=== PATIENT | female | born 1950 | race Caucasian/White ===

== ENCOUNTER 2018-03-05 20:13 | Observation (INO) | payer MEDICARE, BC, SELFPAY ==
[2018-03-05] VITALS (12 sets, daily range): BP systolic 139–189; BP diastolic 70–120; PULSE 81–100; RESP 14–22; TEMP 36.7–36.8; O2SAT 95–99
--- NOTE | 2018-03-05 20:21 | DI.CT_ITS ---
SYMPTOMS/DIAGNOSIS: SHARP CHEST PAIN WITH SHORTNESS OF BREATH PE CHEST CTA: CT angiography was performed with multi slice acquisition and multi planar and 3D reconstruction. CT scan of the chest was performed according to the pulmonary embolus protocol. There is no evidence of a pulmonary embolus. The thoracic aorta is of normal caliber. No aneurysm or dissection is seen. The heart size is within normal limits. No significant pericardial effusion is seen. No evidence of right ventricular dysfunction is present. There is no significant mediastinal or hilar adenopathy. No pleural effusion or pneumothorax is identified. There are atelectatic changes seen in the lung bases right greater than left. There are several small peripheral nodules seen in the upper lobes, up to 0.3 cm in size. The upper abdominal images show findings of a prior cholecystectomy. The bones are intact. IMPRESSION: 1. No findings to suggest an acute pulmonary embolus or thoracic aortic dissection or aneurysm. 2. Multiple small peripheral pulmonary nodules. Follow up according to the patient's risk factor including smoking history. For high risk patients CT at 12 months is recommended.
--- NOTE | 2018-03-05 20:24 | W.ED.GENAD ---
Discharge Plan Disposition Patient Disposition: [facility] Condition: Good Discharge Details Chief Complaint: Chest Pain Clinical Impression: Chest pain Primary Care Provider: Lynne Richards ED Provider: Seth Bacon Home Meds and New Rx's Prescriptions: No Action atorvastatin 20 MG tablet 10 mg PO DAILY RF: 0 trazodone 50 MG tablet 25 mg PO HS RF: 0 aspirin [Aspir-81] 81 MG tablet,delayed release (DR/EC) 81 mg PO HS RF: 0 oxybutynin chloride 5 MG tablet 5 mg PO HS RF: 0 albuterol sulfate [Ventolin HFA] 8 GM HFA aerosol inhaler 1 - 2 puff Inhalation Q4H PRN RF: 0 esomeprazole magnesium [Nexium] 40 mg Capsule,Delayed Release(Dr/Ec) 40 mg PO DAILY RF: 0 lisinopril 10 mg Tablet 10 mg PO DAILY RF: 0 Medical Decision Making This is a 67-year-old female who presents today for evaluation of chest pain. It began at 11 AM, and is gradually worsened, climaxing about an hour ago with a sharp stabbing central pain that went through her chest into her back, and radiated down her left arm. There does not seem to be an exertional component, however she did have some associated shortness of breath and mild chest pressure when she was shoveling snow during the last snowstorm. She unfortunately has a very strong family history of cardiac disease, from her mother's side, both of which had heart attacks at the age of 70. The patient does have cardiac risk factors additionally of hypertension and high cholesterol. I am certainly concerned for potential cardiac etiology as the cause of her symptoms, additionally with her stabbing pain through her chest, her tachycardia and shortness of breath I feel that CT angiography is reasonable to rule out dissection or PE. We will give the patient nitro, aspirin, reassess. She will most likely require observation for serial troponins and echocardiogram in the morning. 20:19 EKG rate 93, ID 160, QTc 428, QRS 90, sinus rhythm, no significant ST elevations or depressions, no Q waves, no inverted T waves. Normal EKG Patient's laboratory workup is returned, troponin is negative, EKG shows no evidence of STEMI. TSH and lipase are also normal. CT angiogram shows no evidence of acute process, no evidence of dissection or PE. There are a few small peripheral nodules in her lungs. These will require outpatient follow-up. Patient's pain is still at a 0 at this time. She has responded well to the initial nitroglycerin. She is not on a nitro drip. Because of her symptomatology, and risk factors I feel that she would benefit from inpatient admission serial troponins and stress test. I discussed the case with Dr. Nieto, he agrees to the assessment and plan. Patient [facility] be [facility] with telemetry. I have extensively reviewed the treatment plan with the patient. I have addressed all patient concerns at this time. I have also discussed the plan with the admitting physician and they agree with the current assessment and plan and have agreed to assume responsibility for the patient. All parties demonstrate verbal understanding and agreement with our assessment and plan at this time. IMPRESSION: 1. No CTA evidence of pulmonary embolism. 2. Multiple small peripheral nodules in the upper lobes ranging in size from 0.2 to 0.3 cm. For low risk patients, no routine follow-up is needed. For high risk patients, optional CT at 12 months is recommended. Dictated and Authenticated by: Jorge Pino MD. [facility] General Date/Time Provider Initiated Documentation: 03/05/18 20:21. HPI Narrative: This is a 67-year-old female with a past medical history of alpha-1 antitrypsin deficiency, hypertension, high cholesterol, and a very strong history of maternal cardiac disease at the age of 69, a past surgical history of cholecystectomy who presents today for evaluation of chest pain. Patient states that she had chest pain which she describes as sharp and achy and pressure-like started at 11 AM, throughout the day it worsened, and at one point roughly an hour ago she had a sharp stabbing pain that went straight through her chest into her back. As well as radiation down the left arm. There seems to be no aggravating or relieving factors, she states that currently exertion does not worsen her symptoms, and rest does not relieve them. Symptoms seem to be constant on their own. She does note though that the last big snowstorm while shoveling snow she remembers feeling particularly short of breath, may have had some chest pressure, both of which are atypical for her when she is shoveling snow. The patient denies any previous cardiac workup, she denies any previous cardiac issues. She does take her home medications regularly. She did take 1 baby aspirin prior to arrival. Patient also did drink some soda and took some Tums but this did not her improve her symptoms. Patient denies any other aggravating or relieving factors, she denies any other associated complaints. She has no other complaints at this time. Related Data Home Medications Medication Instructions Recorded Confirmed aspirin [Aspir 81] 81 mg PO HS 09/27/12 03/05/18 atorvastatin 10 mg PO DAILY tab-cap 09/27/12 03/05/18 oxybutynin chloride 5 mg PO HS 09/27/12 03/05/18 trazodone 25 mg PO HS tab-cap 09/27/12 03/05/18 albuterol sulfate [Ventolin Hfa] 1 - 2 puff INHALATION Q4H PRN 12/04/13 03/05/18 inhaler esomeprazole magnesium [Nexium] 40 mg PO DAILY 03/05/18 03/05/18 lisinopril 10 mg PO DAILY 03/05/18 03/05/18 Allergies Allergy/AdvReac Type Severity Reaction Status Date / Time Penicillins Allergy Severe hives and Unverified 12/04/13 09:03 swelling. General Stated Complaint: Chest Pain SOCO: 2 Review of Systems Review of Systems All systems reviewed & are unremarkable except as noted in HPI and below PFSH Social History Smoking/Tobacco Use Status: Never Social History Smoking/Tobacco Use Status: Never Exam Narrative Exam Narrative: 1.Const: Well-nourished, Well-developed, appearing stated age 2.Eyes: PERRL, no conjunctival injection, and symmetrical lids. 3.ENT: Atraumatic external nose and ears. Moist MM. Neck: Symmetric, trachea midline, No thyromegaly. 4.CVS: +S1/S2, No murmurs or gallops. Peripheral pulses 2+ and equal in all extremities. Brisk capillary refill in all extremities. Radial pulses +2 bilaterally and equal and symmetric. 5.RESP: Unlabored respiratory effort. Clear to auscultation bilaterally. No wheezes rales or rhonchi, no reproducible chest wall tenderness. 6.GI: Soft, Nontender/Nondistended, No hepatosplenomegaly. No guarding or rebound. No pain at McBurney's point, negative Carmona sign 7.MSK: Normocephalic/Atraumatic, Extremities w/o deformity or ttp No cyanosis or clubbing, Normal movement of all extremities 8.Skin: Warm, Dry. No rashes or lesions. 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 Sensation grossly intact, no focal neurologic deficits. 10.Psych: (AAO) x3. Appropriate mood and affect Course Vital Signs Temperature 36.8 C 03/05/18 20:16 Pulse 100 H 03/05/18 20:16 Respiratory Rate 16 03/05/18 20:16 Blood Pressure 189/120 H 03/05/18 20:16 Pulse Oximetry 99 03/05/18 20:16 Temperature 36.8 C 03/05/18 20:16 Temperature Source Temporal Artery Scan 03/05/18 20:16 Pulse 100 H 03/05/18 20:16 Respiratory Rate 16 03/05/18 20:16 Blood Pressure 189/120 H 03/05/18 20:16 Pulse Oximetry 99 03/05/18 20:16 Oxygen Delivery Method Room Air 03/05/18 20:16 Oxygen Flow Rate 0 03/05/18 20:16 Pain Level 2 03/05/18 20:16 Comment 03/05/18 20:16
[2018-03-05] MEDS: Aspirin 81 MG CHEW 324 MG CH (20:29)
--- NOTE | 2018-03-05 20:30 | ED.GENADUL_ITS ---
Discharge Plan Disposition Patient Disposition: [facility] INPATIENT Condition: Good Discharge Details Chief Complaint: Chest Pain Clinical Impression: Chest pain Primary Care Provider: Lynne Richards ED Provider: Seth Bacon Home Meds and New Rx's Prescriptions: No Action atorvastatin 20 MG tablet 10 mg PO DAILY RF: 0 trazodone 50 MG tablet 25 mg PO HS RF: 0 aspirin [Aspir-81] 81 MG tablet,delayed release (DR/EC) 81 mg PO HS RF: 0 oxybutynin chloride 5 MG tablet 5 mg PO HS RF: 0 albuterol sulfate [Ventolin HFA] 8 GM HFA aerosol inhaler 1 - 2 puff Inhalation Q4H PRN RF: 0 esomeprazole magnesium [Nexium] 40 mg Capsule,Delayed Release(Dr/Ec) 40 mg PO DAILY RF: 0 lisinopril 10 mg Tablet 10 mg PO DAILY RF: 0 Medical Decision Making This is a 67-year-old female who presents today for evaluation of chest pain. It began at 11 AM, and is gradually worsened, climaxing about an hour ago with a sharp stabbing central pain that went through her chest into her back, and radiated down her left arm. There does not seem to be an exertional component, however she did have some associated shortness of breath and mild chest pressure when she was shoveling snow during the last snowstorm. She unfortunately has a very strong family history of cardiac disease, from her mother's side, both of which had heart attacks at the age of 70. The patient does have cardiac risk factors additionally of hypertension and high cholesterol. I am certainly concerned for potential cardiac etiology as the cause of her symptoms, additionally with her stabbing pain through her chest, her tachycardia and shortness of breath I feel that CT angiography is reasonable to rule out dissection or PE. We will give the patient nitro, aspirin, reassess. She will most likely require observation for serial troponins and echocardiogram in the morning. 20:19 EKG rate 93, ID 160, QTc 428, QRS 90, sinus rhythm, no significant ST elevations or depressions, no Q waves, no inverted T waves. Normal EKG Patient's laboratory workup is returned, troponin is negative, EKG shows no evidence of STEMI. TSH and lipase are also normal. CT angiogram shows no evidence of acute process, no evidence of dissection or PE. There are a few small peripheral nodules in her lungs. These will require outpatient follow- up. Patient's pain is still at a 0 at this time. She has responded well to the initial nitroglycerin. She is not on a nitro drip. Because of her symptomatology, and risk factors I feel that she would benefit from inpatient admission serial troponins and stress test. I discussed the case with Dr. Nieto, he agrees to the assessment and plan. Patient will be admitted to [facility] with telemetry. I have extensively reviewed the treatment plan with the patient. I have addressed all patient concerns at this time. I have also discussed the plan with the admitting physician and they agree with the current assessment and plan and have agreed to assume responsibility for the patient. All parties demonstrate verbal understanding and agreement with our assessment and plan at this time. IMPRESSION: 1. No CTA evidence of pulmonary embolism. 2. Multiple small peripheral nodules in the upper lobes ranging in size from 0.2 to 0.3 cm. For low risk patients, no routine follow-up is needed. For high risk patients, optional CT at 12 months is recommended. Dictated and Authenticated by: Jorge Pino MD. [facility] General Date/Time Provider Initiated Documentation: 03/05/18 20:21 . HPI Narrative: This is a 67-year-old female with a past medical history of alpha-1 antitrypsin deficiency, hypertension, high cholesterol, and a very strong history of maternal cardiac disease at the age of 69, a past surgical history of cholecystectomy who presents today for evaluation of chest pain. Patient states that she had chest pain which she describes as sharp and achy and pressure-like started at 11 AM, throughout the day it worsened, and at one point roughly an hour ago she had a sharp stabbing pain that went straight through her chest into her back. As well as radiation down the left arm. There seems to be no aggravating or relieving factors, she states that currently exertion does not worsen her symptoms, and rest does not relieve them. Symptoms seem to be constant on their own. She does note though that the last big snowstorm while shoveling snow she remembers feeling particularly short of breath, may have had some chest pressure, both of which are atypical for her when she is shoveling snow. The patient denies any previous cardiac workup, she denies any previous cardiac issues. She does take her home medications regularly. She did take 1 baby aspirin prior to arrival. Patient also did drink some soda and took some Tums but this did not her improve her symptoms. Patient denies any other aggravating or relieving factors, she denies any other associated complaints. She has no other complaints at this time. Related Data Home Medications Medication Instructions Recorded Confirmed aspirin [Aspir 81] 81 mg PO HS 09/27/12 03/05/18 atorvastatin 10 mg PO DAILY tab-cap 09/27/12 03/05/18 oxybutynin chloride 5 mg PO HS 09/27/12 03/05/18 trazodone 25 mg PO HS tab-cap 09/27/12 03/05/18 albuterol sulfate [Ventolin Hfa] 1 - 2 puff INHALATION Q4H PRN 12/04/13 03/05/18 inhaler esomeprazole magnesium [Nexium] 40 mg PO DAILY 03/05/18 03/05/18 lisinopril 10 mg PO DAILY 03/05/18 03/05/18 Allergies Allergy/AdvReac Type Severity Reaction Status Date / Time Penicillins Allergy Severe hives and Unverified 12/04/13 09:03 swelling. General Stated Complaint: Chest Pain SOCO: 2 Review of Systems Review of Systems All systems reviewed & are unremarkable except as noted in HPI and below PFSH Social History Smoking/Tobacco Use Status: Never Social History Smoking/Tobacco Use Status: Never Exam Narrative Exam Narrative: 1.Const: Well-nourished, Well-developed, appearing stated age 2.Eyes: PERRL, no conjunctival injection, and symmetrical lids. 3.ENT: Atraumatic external nose and ears. Moist MM. Neck: Symmetric, trachea midline, No thyromegaly. 4.CVS: +S1/S2, No murmurs or gallops. Peripheral pulses 2+ and equal in all extremities. Brisk capillary refill in all extremities. Radial pulses +2 bilaterally and equal and symmetric. 5.RESP: Unlabored respiratory effort. Clear to auscultation bilaterally. No wheezes rales or rhonchi, no reproducible chest wall tenderness. 6.GI: Soft, Nontender/Nondistended, No hepatosplenomegaly. No guarding or rebound. No pain at McBurney's point, negative Carmona sign 7.MSK: Normocephalic/Atraumatic, Extremities w/o deformity or ttp No cyanosis or clubbing, Normal movement of all extremities 8.Skin: Warm, Dry. No rashes or lesions. 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 Sensation grossly intact, no focal neurologic deficits. 10.Psych: (AAO) x3. Appropriate mood and affect Course Vital Signs Temperature 36.8 C 03/05/18 20:16 Pulse 100 H 03/05/18 20:16 Respiratory Rate 16 03/05/18 20:16 Blood Pressure 189/120 H 03/05/18 20:16 Pulse Oximetry 99 03/05/18 20:16 Temperature 36.8 C 03/05/18 20:16 Temperature Source Temporal Artery Scan 03/05/18 20:16 Pulse 100 H 03/05/18 20:16 Respiratory Rate 16 03/05/18 20:16 Blood Pressure 189/120 H 03/05/18 20:16 Pulse Oximetry 99 03/05/18 20:16 Oxygen Delivery Method Room Air 03/05/18 20:16 Oxygen Flow Rate 0 03/05/18 20:16 Pain Level 2 03/05/18 20:16 Comment 03/05/18 20:16
[2018-03-05] MEDS: Normal Saline 1,000 ML 1000 ML IV (20:32)
[2018-03-05 20:35] LABS: Abs Immature Grans 0.02 k/cumm (0.0-0.09); Absolute Basophil Count 0.03 k/cumm (0.0-0.2); Absolute Eosinophil Count 0.15 k/cumm (0.0-0.7); Absolute Lymphocyte Count 2.21 k/cumm (1.2-3.4); Absolute Monocyte Count 0.71 k/cumm (0.11-0.7); Absolute Neutrophil Count 6.81 k/cumm (1.2-6.7); Basophils % 0.3; Eosinophils % 1.5; HCT 41.8 % (36.0-46.0); Immature Grans % 0.2; Lymphocytes % 22.3; Mean Corpuscular Volume 91.3 fL (80-95); Mean Platelet Volume 9.8 fL (8.0-11.0); Monocytes % 7.2; Neutrophils % 68.5; Platelet Count 172 x1000/uL (130-400); RBC 4.58 m/cumm (4.00-5.20); RBC Distribution Width 12.2 % (11.7-14.6); White Blood Cell Count 9.93 k/cumm (4.4-10.8)
--- NOTE | 2018-03-05 20:37 | NUR.NOTE ---
0/10 pressure after 2nd SL NTG.
[2018-03-05 20:49] LABS: INR 1.1 (1.0-3.5); Mean Corp. HGB Concentration 35.4 g/dL (32.0-36.0); Mean Corpuscular Hemoglobin 32.3 pg (27.0-33.0); PTT Activated 23.9 sec (21.0-31.4); Prothrombin Time 11.1 sec (9.3-10.8)
[2018-03-05 20:51] LABS: ALT 33 U/L (12-78); AST 31 U/L (15-37); Albumin 4.1 g/dL (3.4-5.0); Alkaline Phosphatase 107 U/L (46-116); Anion Gap 10.6 mmol/L (3-11); BUN 11 mg/dL (7-18); Bilirubin, Total 0.5 mg/dL (0.2-1.0); CO2 28.4 mmol/L (21.0-32.0); CREATININE 0.79 mg/dL (0.55-1.02); Calcium 8.9 mg/dL (8.5-10.1); Chloride 101 mmol/L (98-107); Glucose 144 mg/dL (70-100); HGB 14.8 g/dL (12.0-15.5); Potassium 3.2 mmol/L (3.5-5.1); Sodium 140 mmol/L (136-145); Total Protein 7.4 g/dL (6.4-8.2)
[2018-03-05 20:58] LABS: Lipase 138 U/L (73-393); TSH 3.37 uIU/mL (0.358-3.74)
[2018-03-05 21:03] LABS: Troponin I < 0.02 ng/mL (0.00-0.06)
[2018-03-05] MEDS: Omnipaque 350 MG/ML 100 ML BTL IJ (21:58)
--- NOTE | 2018-03-05 22:01 | DI.VRAD_ITS ---
EXAM: CT Angiography Chest With Intravenous Contrast EXAM DATE/TIME: 03/05/2018 8:24 PM CLINICAL HISTORY: 67 years old, female; Pain; Chest pain; Type not specified; Patient HX: Loretta central cp, w SOB TECHNIQUE: Axial computed tomographic angiography images of the chest with intravenous contrast using CT angiography protocol. All CT scans at this facility use at least one of these dose optimization techniques: automated exposure control; mA and/or kV adjustment per patient size (includes targeted exams where dose is matched to clinical indication); or iterative reconstruction. Coronal and sagittal reformatted images were created and reviewed. MIP reconstructed images were created and reviewed. CONTRAST: 80 ml of Omnipaque 350 administered intravenously. COMPARISON: No relevant prior studies available. FINDINGS: Pulmonary arteries: No filling defects within the main, lobar, segmental, and subsegmental pulmonary arterial branches. Aorta: No aortic aneurysm. No evidence of dissection. Lungs: Mild bibasilar dependent atelectasis of the lower lobes. Right lower lobe linear atelectasis versus scarring. Multiple small peripheral nodules in the upper lobes ranging in size from 0.2 to 0.3 cm, example nodule in the right upper lobe on series 5 image 17 measuring 0.2 cm. Pleural space: No pleural effusion or pneumothorax. Heart: Unremarkable. No pericardial effusion. Gallbladder and bile ducts: The gallbladder is surgically absent. Lymph nodes: No enlarged lymph nodes. Bones/joints: No acute osseus lesion or fracture. Soft tissues: Unremarkable. IMPRESSION: 1. No CTA evidence of pulmonary embolism. 2. Multiple small peripheral nodules in the upper lobes ranging in size from 0.2 to 0.3 cm. For low risk patients, no routine follow-up is needed. For high risk patients, optional CT at 12 months is recommended. Dictated and Authenticated by: Jorge Pino MD. Ordering:OMEGA MILLER MD
[2018-03-05] MEDS: Metoprolol 12.5 MG TAB PO (23:37)
[2018-03-05] MEDS: POTASSIUM CHLORIDE 10 MEQ/100 ML BAG 50 MEQ IVPB (23:40)
--- NOTE | 2018-03-05 23:57 | W.PM.HP.N ---
Date of service: 03/05/18 Time of Service: 23:57 Assessment and Plan (1) Atypical chest pain: Start date: 03/05/18 Current visit: Yes Status: Acute Patient's chest pain was atypical for angina pectoris but did respond to aspirin at home and then nitroglycerin sublingually in the emergency room. She will be observed overnight on telemetry with serial troponins and have cardiology consultation in the morning for possible exercise stress test prior to being discharged home. Long-term she should continue working on her cardiovascular risk. She could do more routine aerobic exercise. This may help with her truncal weight. (2) Hypertension: Current visit: Yes Status: Chronic This is a chronic problem and her history fairly well controlled. We will advance her therapy with metoprolol heart rate control while she is observed. 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 (3) Hyperlipidemia: Current visit: Yes Status: Chronic This is a chronic problem and we should follow-up this is an outpatient and adjust treatment to goal. This is a risk factor for advancing cardiovascular disease with patient's strong family history. 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 She previously lived in [place] and was seen by Dr. Mills and then Dr. Richards at [facility]. She has never had a history of coronary artery disease but her family history is quite strong. She does take medicines for hyperlipidemia hypertension and reflux. She has had her gallbladder out and when she was sitting watching TV began to have her sharp chest pain in her lower retrosternal area with heartburn and took antacids. Did not improve and she eventually came to the ED for evaluation. She had taken an aspirin at home with some relief of pain and then in the emergency room she had nitroglycerin sublingually which relieved her pain. Antacids at home did not help her pain as mentioned. See ED note for evaluation which was essentially unrevealing with a normal lipase, normal CT of the chest with no evidence of PE or dissecting aneurysm and negative troponin with normal EKG. She often does have phantom gallbladder symptoms associated with meals but this onset of chest pain was not associated with meals though she does skip lunch routinely. This began before lunchtime. She had associated sharp pain with radiation straight to her back which prompted her to come to the ED. She had no nausea or vomiting and no shortness of breath at rest. She did have an episode of unusual shortness of breath with exertion when shoveling snow this last snowstorm. She also denied diaphoresis and her chest discomfort did also radiate into her left shoulder and into her left arm. Pain was sharp and not squeezing. As stated she had chest pain while watching practice. She is a non-smoker, nondrinker but does not routinely exercise aerobically. She is very active physically. She never has symptoms with her activity at home which is quite exertional at times. She is slightly overweight. Pertinent review of systems otherwise unrevealing patient very active with no restrictions, no focalizing neurological symptoms, no symptoms though she occasionally has GI symptoms as mentioned above is that she has a phantom gallbladder discomfort. She has no musculoskeletal restrictions. She does have alpha-1 deficiency in her family that she has no respiratory symptoms. Past medical history is as above with hypertension, hyperlipidemia and reflux disease. Past surgeries do include cholecystectomy, tonsillectomy and a right oophorectomy. Review of Systems Review of Systems All systems reviewed & are unremarkable except as noted in HPI and below Constitutional Reports headache(s) ENT Reports headache(s) and Reports mouth pain (Patient did have a root canal recently and is on a Z-Carlo presently which is a new medication for her and the only recent change) Respiratory Reports system reviewed and no additional complaints, except as docu Comments: No discomfort with deep inspiration. Neurologic Reports headache(s) PFSH Social History Smoking/Tobacco Use Status: Never Social History Smoking/Tobacco Use Status: Never Meds Home Medications Medication Instructions Recorded Confirmed Type aspirin [Aspir 81] 81 mg PO HS 09/27/12 03/05/18 History atorvastatin 10 mg PO DAILY tab-cap 09/27/12 03/05/18 History oxybutynin chloride 5 mg PO HS 09/27/12 03/05/18 History trazodone 25 mg PO HS tab-cap 09/27/12 03/05/18 History albuterol sulfate [Ventolin Hfa] 1 - 2 puff INHALATION Q4H PRN 12/04/13 03/05/18 History inhaler esomeprazole magnesium [Nexium] 40 mg PO DAILY 03/05/18 03/05/18 History lisinopril 10 mg PO DAILY 03/05/18 03/05/18 History Allergies Allergy/AdvReac Type Severity Reaction Status Date / Time Penicillins Allergy Severe hives and Unverified 12/04/13 09:03 swelling. Exam Narrative Exam Narrative: General: Patient appears appropriate for age, she is quite talkative with slight pressured speech, alert and oriented x3. She is in no acute distress. HEENT: Normocephalic with ears normal, oropharynx with pink moist mucosa and normal dentition, eyes normal with pupils equal and reactive to light symmetrically and extraocular movement intact with sclera anicteric. Neck: Supple without JVD and no palpable thyromegaly. Lungs: Clear to auscultation percussion. Back: Normal posture with no CVA tenderness. Heart: Regular rate and rhythm without murmurs or gallops appreciated. Breast: Not examined. Abdomen: Slightly obese, soft and nontender to palpation with no palpable hepato-splenomegaly. No epigastric tenderness specifically. Genitalia rectal exam deferred. Extremities without clubbing cyanosis or edema with peripheral pulses intact. Skin: [place], warm and dry. No rashes. Neuro: No focalizing motor deficits, [place] nerves II through XII grossly intact. Neuropsych: Normal short-term and long-term memory, normal affect other than slightly pressured speech and no abnormal thought processes. The patient is well educated and converses well. Results Labs : 03/05/18 20:25 03/05/18 20:25 Laboratory Results - last 24 hr 03/05/18 03/05/18 03/05/18 20:25 20:25 20:25 WBC 9.93 RBC 4.58 Hgb 14.8 Hct 41.8 MCV 91.3 MCH 32.3 MCHC 35.4 RDW 12.2 Plt Count 172 MPV 9.8 Immature Gran % 0.2 Neutrophils % 68.5 Lymphocytes % 22.3 Monocytes % 7.2 Eosinophils % 1.5 Basophils % 0.3 Absolute Neutrophils 6.81 H Absolute Lymphocytes 2.21 Absolute Monocytes 0.71 H Absolute Eosinophils 0.15 Absolute Basophils 0.03 PT INR APTT Sodium 140 Potassium 3.2 L Chloride 101 Carbon Dioxide 28.4 Anion Gap 10.6 BUN 11 Creatinine 0.79 Estimated GFR/1.73 m2 >= 60.00 Glucose 144 H Calcium 8.9 Total Bilirubin 0.5 AST 31 ALT 33 Alkaline Phosphatase 107 Troponin I < 0.02 Total Protein 7.4 Albumin 4.1 Lipase 138 TSH 3.37 03/05/18 20:25 WBC RBC Hgb Hct MCV MCH MCHC RDW Plt Count MPV Immature Gran % Neutrophils % Lymphocytes % Monocytes % Eosinophils % Basophils % Absolute Neutrophils Absolute Lymphocytes Absolute Monocytes Absolute Eosinophils Absolute Basophils PT 11.1 H INR 1.1 APTT 23.9 Sodium Potassium Chloride Carbon Dioxide Anion Gap BUN Creatinine Estimated GFR/1.73 m2 Glucose Calcium Total Bilirubin AST ALT Alkaline Phosphatase Troponin I Total Protein Albumin Lipase TSH Last Vital Signs Temp 36.7 C 03/05/18 23:03 Pulse 95 H 03/05/18 23:21 Resp 18 03/05/18 23:03 BP 147/81 H 03/05/18 23:03 Pulse Ox 96 03/05/18 23:03
--- NOTE | 2018-03-06 00:14 | HPE_ITS ---
Date of service: 03/05/18 Time of Service: 23:57 Assessment and Plan (1) Atypical chest pain: Start date: 03/05/18 Current visit: Yes Status: Acute Patient's chest pain was atypical for angina pectoris but did respond to aspirin at home and then nitroglycerin sublingually in the emergency room. She will be observed overnight on telemetry with serial troponins and have cardiology consultation in the morning for possible exercise stress test prior to being discharged home. Long-term she should continue working on her cardiovascular risk. She could do more routine aerobic exercise. This may help with her truncal weight. (2) Hypertension: Current visit: Yes Status: Chronic This is a chronic problem and her history fairly well controlled. We will advance her therapy with metoprolol heart rate control while she is observed. The transplant nurse practitioner concomitant with this should be continued. (3) Hyperlipidemia: Current visit: Yes Status: Chronic This is a chronic problem and we should follow-up this is an outpatient and adjust treatment to goal. This is a risk factor for advancing cardiovascular disease with patient's strong family history. 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 She previously lived in [place] and was seen by Dr. Mills and then Dr. Richards at [facility]. She has never had a history of coronary artery disease but her family history is quite strong. She does take medicines for hyperlipidemia hypertension and reflux. She has had her gallbladder out and when she was sitting watching TV began to have her sharp chest pain in her lower retrosternal area with heartburn and took antacids. Did not improve and she eventually came to the ED for evaluation. She had taken an aspirin at home with some relief of pain and then in the emergency room she had nitroglycerin sublingually which relieved her pain. Antacids at home did not help her pain as mentioned. See ED note for evaluation which was essentially unrevealing with a normal lipase, normal CT of the chest with no evidence of PE or dissecting aneurysm and negative troponin with normal EKG. She often does have phantom gallbladder symptoms associated with meals but this onset of chest pain was not associated with meals though she does skip lunch routinely. This began before lunchtime. She had associated sharp pain with radiation straight to her back which prompted her to come to the ED. She had no nausea or vomiting and no shortness of breath at rest. She did have an episode of unusual shortness of breath with exertion when shoveling snow this last snowstorm. She also denied diaphoresis and her chest discomfort did also radiate into her left shoulder and into her left arm. Pain was sharp and not squeezing. As stated she had chest pain while watching practice. She is a non-smoker, nondrinker but does not routinely exercise aerobically. She is very active physically. She never has symptoms with her activity at home which is quite exertional at times. She is slightly overweight. Pertinent review of systems otherwise unrevealing patient very active with no restrictions, no focalizing neurological symptoms, no symptoms though she occasionally has GI symptoms as mentioned above is that she has a phantom gallbladder discomfort. She has no musculoskeletal restrictions. She does have alpha-1 deficiency in her family that she has no respiratory symptoms. Past medical history is as above with hypertension, hyperlipidemia and reflux disease. Past surgeries do include cholecystectomy, tonsillectomy and a right oophorectomy. Review of Systems Review of Systems All systems reviewed & are unremarkable except as noted in HPI and below Constitutional Reports headache(s) ENT Reports headache(s) and Reports mouth pain (Patient did have a root canal recently and is on a Z-Carlo presently which is a new medication for her and the only recent change) Respiratory Reports system reviewed and no additional complaints, except as docu Comments: No discomfort with deep inspiration. Neurologic Reports headache(s) PFSH Social History Smoking/Tobacco Use Status: Never Social History Smoking/Tobacco Use Status: Never Meds Home Medications Medication Instructions Recorded Confirmed Type aspirin [Aspir 81] 81 mg PO HS 09/27/12 03/05/18 History atorvastatin 10 mg PO DAILY tab-cap 09/27/12 03/05/18 History oxybutynin chloride 5 mg PO HS 09/27/12 03/05/18 History trazodone 25 mg PO HS tab-cap 09/27/12 03/05/18 History albuterol sulfate [Ventolin Hfa] 1 - 2 puff INHALATION Q4H PRN 12/04/13 History inhaler esomeprazole magnesium [Nexium] 40 mg PO DAILY 03/05/18 03/05/18 History lisinopril 10 mg PO DAILY 03/05/18 03/05/18 History Allergies Allergy/AdvReac Type Severity Reaction Status Date / Time Penicillins Allergy Severe hives and Unverified 12/04/13 09:03 swelling. Exam Narrative Exam Narrative: General: Patient appears appropriate for age, she is quite talkative with slight pressured speech, alert and oriented x3. She is in no acute distress. HEENT: Normocephalic with ears normal, oropharynx with pink moist mucosa and normal dentition, eyes normal with pupils equal and reactive to light symmetrically and extraocular movement intact with sclera anicteric. Neck: Supple without JVD and no palpable thyromegaly. Lungs: Clear to auscultation percussion. Back: Normal posture with no CVA tenderness. Heart: Regular rate and rhythm without murmurs or gallops appreciated. Breast: Not examined. Abdomen: Slightly obese, soft and nontender to palpation with no palpable hepato -splenomegaly. No epigastric tenderness specifically. Genitalia rectal exam deferred. Extremities without clubbing cyanosis or edema with peripheral pulses intact. Skin: [place], warm and dry. No rashes. Neuro: No focalizing motor deficits, [place] nerves II through XII grossly intact. Neuropsych: Normal short-term and long-term memory, normal affect other than slightly pressured speech and no abnormal thought processes. The patient is well educated and converses well. Results Labs : 03/05/18 20:25 03/05/18 20:25 Laboratory Results - last 24 hr 03/05/18 03/05/18 03/05/18 20:25 20:25 20:25 WBC 9.93 RBC 4.58 Hgb 14.8 Hct 41.8 MCV 91.3 MCH 32.3 MCHC 35.4 RDW 12.2 Plt Count 172 MPV 9.8 Immature Gran % 0.2 Neutrophils % 68.5 Lymphocytes % 22.3 Monocytes % 7.2 Eosinophils % 1.5 Basophils % 0.3 Absolute Neutrophils 6.81 H Absolute Lymphocytes 2.21 Absolute Monocytes 0.71 H Absolute Eosinophils 0.15 Absolute Basophils 0.03 PT INR APTT Sodium 140 Potassium 3.2 L Chloride 101 Carbon Dioxide 28.4 Anion Gap 10.6 BUN 11 Creatinine 0.79 Estimated GFR/1.73 m2 >= 60.00 Glucose 144 H Calcium 8.9 Total Bilirubin 0.5 AST 31 ALT 33 Alkaline Phosphatase 107 Troponin I < 0.02 Total Protein 7.4 Albumin 4.1 Lipase 138 TSH 3.37 03/05/18 20:25 WBC RBC Hgb Hct MCV MCH MCHC RDW Plt Count MPV Immature Gran % Neutrophils % Lymphocytes % Monocytes % Eosinophils % Basophils % Absolute Neutrophils Absolute Lymphocytes Absolute Monocytes Absolute Eosinophils Absolute Basophils PT 11.1 H INR 1.1 APTT 23.9 Sodium Potassium Chloride Carbon Dioxide Anion Gap BUN Creatinine Estimated GFR/1.73 m2 Glucose Calcium Total Bilirubin AST ALT Alkaline Phosphatase Troponin I Total Protein Albumin Lipase TSH Last Vital Signs Temp 36.7 C 03/05/18 23:03 Pulse 95 H 03/05/18 23:21 Resp 18 03/05/18 23:03 BP 147/81 H 03/05/18 23:03 Pulse Ox 96 03/05/18 23:03
[2018-03-06 03:16] LABS: Magnesium 1.7 mg/dL (1.8-2.4)
[2018-03-06 03:17] LABS: Troponin I < 0.02 ng/mL (0.00-0.06)
[2018-03-06 04:34] VITALS: BP 116/73; PULSE 75; RESP 16; TEMP 36.3; O2SAT 96
[2018-03-06 06:59] LABS: HCT 40.2 % (36.0-46.0); HGB 14.4 g/dL (12.0-15.5); Mean Corp. HGB Concentration 35.8 g/dL (32.0-36.0); Mean Corpuscular Hemoglobin 32.7 pg (27.0-33.0); Mean Corpuscular Volume 91.4 fL (80-95); Mean Platelet Volume 9.9 fL (8.0-11.0); Platelet Count 167 x1000/uL (130-400); RBC Distribution Width 12.2 % (11.7-14.6); White Blood Cell Count 7.84 k/cumm (4.4-10.8)
[2018-03-06 07:10] VITALS: O2SAT 96
[2018-03-06 07:15] VITALS: PULSE 69
[2018-03-06 07:19] LABS: ALT 25 U/L (12-78); AST 22 U/L (15-37); Albumin 3.8 g/dL (3.4-5.0); Alkaline Phosphatase 84 U/L (46-116); Anion Gap 8.5 mmol/L (3-11); BUN 8 mg/dL (7-18); Bilirubin, Total 0.6 mg/dL (0.2-1.0); CO2 28.5 mmol/L (21.0-32.0); CREATININE 0.62 mg/dL (0.55-1.02); Calcium 9.1 mg/dL (8.5-10.1); Chloride 107 mmol/L (98-107); Glucose 100 mg/dL (70-100); Potassium 3.6 mmol/L (3.5-5.1); Sodium 144 mmol/L (136-145); Total Protein 6.8 g/dL (6.4-8.2); Troponin I < 0.02 ng/mL (0.00-0.06)
--- NOTE | 2018-03-06 07:49 | PDOC.CMIN ---
- If Service Date Differs Date of service: 03/06/18 Time of Service: 07:49 Care Management Initial Assess REASON FOR HOSPITALIZATION:: Chest pain. PAST MEDICAL HISTORY/PAST SURGICAL HISTORY:: Hyperlipidemia, hypertension. Surgical hx: cholesystectomy. PREVIOUS FUNCTIONAL STATUS/SOCIAL/FAMILY SUPPORTS:: Sugey resides in [place] with her , Vini, and his adult daughter. 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 Sugey is independent with her ADLs and transportation and reports that she has no reservations about returning home when medically ready. CURRENT FUNCTIONAL STATUS:: Sugey is lying in bed when CM visits this morning. She makes good eye contact though is blunt in her interactions with CM and nursing aide. Sugey denies pain at this time. Sugey's troponins have been negative and there have been no changes on her EKG. Discussion with GM regarding possible discharge today and follow up appointments with her PCP and for a stress test. ADVANCE DIRECTIVES:: None on file at [facility]. Patient reports that they are on file at [facility]. Has patient been provided with information about the portal?: Yes Did the patient sign up for the portal?: No (Not interested. ) CODE STATUS:: Full Code INSURANCE COVERAGE / FINANCIAL ISSUES:: Blue Cross Blue Shield, Medicaid, Medicare. CURRENT HOME/COMMUNITY SERVICES/EQUIPMENT:: No home or community services. No equipment. PRIMARY CARE PHYSICIAN:: Lynne Richards ([place]). POTENTIAL DISCHARGE NEEDS:: Follow up appointment with her PCP (patient has an appointment scheduled for 03/15/18), stress test, lab work. PATIENT/FAMILY EDUCATION NEEDS:: Discharge education, any limitations, and follow up plan of care. Ask Me Three discussion. ANTICIPATED BARRIERS TO DISCHARGE:: No anticipated barriers to discharge. TRANSPORTATION:: Sugey will transport via private vehicle with her , Vini. PLAN:: Sugey will discharge home when medically ready per MD. Anticipate patient will discharge home with no services and follow up with her PCP. CM will continue to offer support to patient and care team regarding discharge planning and disposition.
[2018-03-06 07:50] VITALS: BP 155/92; PULSE 81; RESP 17; TEMP 36.6; O2SAT 96
[2018-03-06] MEDS: Esomeprazole 40 MG CAPCR PO (08:02)
[2018-03-06] MEDS: Metoprolol 12.5 MG TAB PO ×2 (08:02→09:08)
[2018-03-06] MEDS: Atorvastatin 20 MG TAB 10 MG PO (08:02)
[2018-03-06] MEDS: Lisinopril 10 MG TAB PO (08:02)
[2018-03-06] MEDS: Mylanta Suspension 30 ML CUP PO (08:39)
--- NOTE | 2018-03-06 08:41 | INITIAL_ITS ---
- If Service Date Differs Date of service: 03/06/18 Time of Service: 07:49 Care Management Initial Assess REASON FOR HOSPITALIZATION:: Chest pain. PAST MEDICAL HISTORY/PAST SURGICAL HISTORY:: Hyperlipidemia, hypertension. Surgical hx: cholesystectomy. PREVIOUS FUNCTIONAL STATUS/SOCIAL/FAMILY SUPPORTS:: Sugey resides in [place] with her , Vini, and his adult daughter. 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 Sugey is independent with her ADLs and transportation and reports that she has no reservations about returning home when medically ready. CURRENT FUNCTIONAL STATUS:: Sugey is lying in bed when CM visits this morning. She makes good eye contact though is blunt in her interactions with CM and director community health nursing. Sugey denies pain at this time. Sugey's troponins have been negative and there have been no changes on her EKG. Discussion with MAINTENANCE CUSTODIAN regarding possible discharge today and follow up appointments with her PCP and for a stress test. ADVANCE DIRECTIVES:: None on file at [facility]. Patient reports that they are on file at [facility]. Has patient been provided with information about the portal?: Yes Did the patient sign up for the portal?: No (Not interested. ) CODE STATUS:: Full Code INSURANCE COVERAGE / FINANCIAL ISSUES:: Blue Cross Blue Shield, Medicaid, Medicare. CURRENT HOME/COMMUNITY SERVICES/EQUIPMENT:: No home or community services. No equipment. PRIMARY CARE PHYSICIAN:: Lynne Richards ([place]). POTENTIAL DISCHARGE NEEDS:: Follow up appointment with her PCP (patient has an appointment scheduled for 03/15/18), stress test, lab work. PATIENT/FAMILY EDUCATION NEEDS:: Discharge education, any limitations, and follow up plan of care. Ask Me Three discussion. ANTICIPATED BARRIERS TO DISCHARGE:: No anticipated barriers to discharge. TRANSPORTATION:: Sugey will transport via private vehicle with her , Vini. PLAN:: Sugey will discharge home when medically ready per MD. Anticipate patient will discharge home with no services and follow up with her PCP. CM will continue to offer support to patient and care team regarding discharge planning and disposition.
[2018-03-06] MEDS: MAGNESIUM SULFATE 2 GM/50 ML BAG IVPB (09:09)
[2018-03-06] MEDS: Normal Saline Flush 10 ML SYR IVP ×2 (09:09)
[2018-03-06 09:36] LABS: Cholesterol 151 mg/dL (50-200); HDL Cholesterol 37 mg/dL (40-60); LDL CHOLESTEROL 64 mg/dL (<100); Triglyceride 284 mg/dL (30-150)
[2018-03-06 10:43] LABS: Lipase 116 U/L (73-393)
[2018-03-06] MEDS: Magic Mouthwash 119 ML BTL 10 ML PO (11:50)
--- NOTE | 2018-03-06 12:22 | PDOC.CMDIS ---
- If Service Date Differs Date of service: 03/06/18 Time of Service: 12:22 LACE Index Scoring Tool - Questions: Length of Stay (in days): 2 Acuity (Admit via E.D.?): Yes E.D. Visits: 1 - Answers: Total Score: 6 Risk of Readmission: Low Risk Care Management Discharge Reason for Hospitalization: Chest pain. Discharge Plan: Sugey will discharge home when medically ready per MD. Anticipate patient will discharge with no services and follow up with her PCP. Sugey will need an outpatient stress test and labs drawn. Sugey will transport via private vehicle with her , Vini. Patient/Family Education Needs: Discharge education, any limitations, and follow up plan of care. Ask Me Three discussion.
--- NOTE | 2018-03-06 12:35 | DSE_ITS ---
Date of service: 03/06/18 Time of Service: 12:33 DS: Diagnosis Discharge Diagnosis (1) Atypical chest pain: Status: Acute (2) Hypertension: Status: Chronic (3) Hyperlipidemia: Status: Chronic Discharge Plan Disposition Patient Disposition: HOME Condition: Good Discharge Details Reason For Visit: CHEST PAIN Admit Date/Time: 03/05/18 22:17 Admit Provider: Levar Dixon Attending Provider: Levar Dixon Primary Care Provider: Lynne Richards Hospital Course Hospital Course: Sugey is a 67 yo woman with hx of HLD, HTN who presented to the ER yesterday with complaints of progressively worsening epigastric discomfort with radiation to the back and L shoulder. Symptoms began suddenly at home yesterday while she was watching TV and got progressively worse throughout the day. Initially suspected heartburn and took antacids with no relief. Has a strong family history of coronary artery disease and when her symptoms did not improve by the evening she decided to come to the emergency department for further evaluation. In the ER she was given sublingual nitroglycerin with some relief. Workup in the ER was unrevealing with a normal lipase, normal CT of the chest with no evidence of PE or dissecting aneurysm, negative troponins and a normal twelve- lead EKG with no ischemic changes. During her hospitalization she did experience recurrence of symptoms after eating. Did notice some relief with Mylanta. Repeat twelve-lead EKG this morning showed normal sinus rhythm with no ischemic changes. Troponins remain negative. Magnesium was slightly decreased at 1.7, so she did receive 2 g via IV. Her atorvastatin was increased from 10 mg to 40 mg. She was started on metoprolol 25 mg twice daily and advised to continue a baby aspirin daily. There does seem to be some GI component to her discomfort. Advised her to increase her Nexium to twice daily dosing and follow-up closely with her PCP. To rule out cardiac ischemia we will proceed with a stress test as an outpatient. Functional capacity is quite good and no baseline EKG changes, so arrangements will be made for her to undergo treadmill stress test. Home Meds and New Rx's Prescriptions: New atorvastatin [Lipitor] 20 mg Tablet 40 mg PO QPM 30 Days Qty: 30 RF: 0 esomeprazole magnesium [Nexium] 40 mg Capsule,Delayed Release(Dr/Ec) 40 mg PO BID@07 Qty: 60 RF: 0 nitroglycerin [Nitrostat] 0.4 mg Tablet, Sublingual 0.4 mg Sublingual Q5 MIN PRN X3 PRN30 Days Qty: 30 RF: 0 metoprolol tartrate 25 mg Tablet 25 mg PO BID 30 Days Qty: 60 RF: 0 Mag&Al/Sim/Diphenhyd/Lidocaine [First-Mouthwash Blm Suspension] 10 ml PO Q6H PRN PRN30 Days Qty: 1 RF: 0 Continue trazodone 50 MG tablet 25 mg PO HS RF: 0 aspirin [Aspir-81] 81 MG tablet,delayed release (DR/EC) 81 mg PO HS RF: 0 oxybutynin chloride 5 MG tablet 5 mg PO HS RF: 0 albuterol sulfate [Ventolin HFA] 8 GM HFA aerosol inhaler 1 - 2 puff Inhalation Q4H PRN RF: 0 lisinopril 10 mg Tablet 10 mg PO DAILY RF: 0 Discontinued atorvastatin 20 MG tablet 10 mg PO DAILY RF: 0 esomeprazole magnesium [Nexium] 40 mg Capsule,Delayed Release(Dr/Ec) 40 mg PO DAILY RF: 0 Discharge Instructions Instructions: Chest Pain (DC) Additional Instructions: You have a Treadmill Stress Test scheduled for March 15 at 8:15am. Please be sure to look over the pre-test instructions the day before this appointment. Stand Alone Forms: Nursing Discharge Form Referrals: Lynne Richards [Primary Care Provider] - 03/15/18 3:00 pm Activity:: Activity as Tolerated Equipment/Supplies:: No Equipment Needed Diet:: As Tolerated Discharge Orders Discharge Orders: Discharge Order (Routine); Ordered 03/06/18 Ordered By: Nery Colunga Other Ambulatory Orders: Helicobacter pylori Ag, Feces (Routine) Timeframe: 1 Week Location: Laboratory Nonpatient Ordered By: Nery Colunga ETT Stress Test (Outpt) (ONCE) (1) Timeframe: 1 Week Location: Determined by Patient Ordered By: Nery Colunga Exam Narrative Exam Narrative: General: 67yo female. Well developed and well nourished. No acute distress. A/Ox3. Pleasant and cooperative. HEENT: Normocephalic, Atraumatic. Conjunctiva clear, sclera non-icteric. PERRL. EOMI. Moist mucous membranes, oropharynx clear. Neck supple, no JVD, thyromegaly or lymphadenopathy. Cardiovascular: Regular rate and rhythm, S1S2, no S3 or S4. No murmur, rub, gallop. Respiratory: Chest expansion symmetrical, respirations unlabored. Lungs clear to auscultation, no adventitious breath sounds. GI: Abdomen round, soft, non-tender to palpation. Normoactive bowel sounds in all 4 quadrants. No hepatosplenomegaly or prominent masses. : deferred Extremities: Lower extremities without deformity or edema Neurological: non-focal. CN 2-12 grossly intact. Psychiatric: pleasant and cooperative. Speech clear and articulate. Mood and affect normal. DS: Data Vitals/I&O Vitals and I&O: Vital Signs Temperature 36.6 C 03/06/18 07:50 Temperature Source Tympanic 03/06/18 07:50 Pulse 81 03/06/18 07:50 Pulse Rhythm Regular 03/06/18 08:05 Pulse 92 H 03/05/18 21:16 Respiratory Rate 17 03/06/18 07:50 Respiratory Effort Non-Labored 03/06/18 08:05 Respiratory Depth Normal 03/06/18 08:05 Respiratory Pattern Normal 03/06/18 08:05 Blood Pressure 155/92 H 03/06/18 07:50 Blood Pressure Mean 93 03/05/18 21:16 Pulse Oximetry 96 03/06/18 07:50 Oxygen Delivery Method Room Air 03/06/18 07:50 Oxygen Flow Rate 0 03/06/18 07:50 Pain Level 6 03/06/18 08:35 Comment 03/05/18 20:16 Intake & Output 03/05/18 03/06/18 03/06/18 23:59 11:59 23:59 Intake Total 1830 / 1830 Balance 1830 / 1830 Weight 70.307 kg 68.2 kg Intake: IV 1120 / 1120 Oral 710 / 710 Other: Comment TVX2 pt missed hat Pt void x1 in toilet. Voiding Methods Toilet Toilet Labs on day of discharge: Labs from last 24 hours 03/06/18 03/06/18 03/06/18 06:40 06:40 02:45 WBC 7.84 RBC 4.40 Hgb 14.4 Hct 40.2 MCV 91.4 MCH 32.7 MCHC 35.8 RDW 12.2 Plt Count 167 MPV 9.9 Immature Gran % Neutrophils % Lymphocytes % Monocytes % Eosinophils % Basophils % Absolute Neutrophils Absolute Lymphocytes Absolute Monocytes Absolute Eosinophils Absolute Basophils PT INR APTT Sodium 144 Potassium 3.6 Chloride 107 Carbon Dioxide 28.5 Anion Gap 8.5 BUN 8 Creatinine 0.62 Estimated GFR/1.73 m2 >= 60.00 Glucose 100 Calcium 9.1 Magnesium 1.7 L Total Bilirubin 0.6 AST 22 ALT 25 Alkaline Phosphatase 84 Troponin I < 0.02 < 0.02 Total Protein 6.8 Albumin 3.8 Triglycerides 284 H Total Cholesterol 151 LDL Cholesterol Direct 64 HDL Cholesterol 37 L Lipase 116 TSH 03/05/18 03/05/18 03/05/18 22:44 20:25 20:25 WBC 9.93 RBC 4.58 Hgb 14.8 Hct 41.8 MCV 91.3 MCH 32.3 MCHC 35.4 RDW 12.2 Plt Count 172 MPV 9.8 Immature Gran % 0.2 Neutrophils % 68.5 Lymphocytes % 22.3 Monocytes % 7.2 Eosinophils % 1.5 Basophils % 0.3 Absolute Neutrophils 6.81 H Absolute Lymphocytes 2.21 Absolute Monocytes 0.71 H Absolute Eosinophils 0.15 Absolute Basophils 0.03 PT 11.1 H INR 1.1 APTT 23.9 Sodium Potassium Chloride Carbon Dioxide Anion Gap BUN Creatinine Estimated GFR/1.73 m2 Glucose Calcium Magnesium Cancelled Total Bilirubin AST ALT Alkaline Phosphatase Troponin I Cancelled Total Protein Albumin Triglycerides Total Cholesterol LDL Cholesterol Direct HDL Cholesterol Lipase TSH 03/05/18 03/05/18 20:25 20:25 WBC RBC Hgb Hct MCV MCH MCHC RDW Plt Count MPV Immature Gran % Neutrophils % Lymphocytes % Monocytes % Eosinophils % Basophils % Absolute Neutrophils Absolute Lymphocytes Absolute Monocytes Absolute Eosinophils Absolute Basophils PT INR APTT Sodium 140 Potassium 3.2 L Chloride 101 Carbon Dioxide 28.4 Anion Gap 10.6 BUN 11 Creatinine 0.79 Estimated GFR/1.73 m2 >= 60.00 Glucose 144 H Calcium 8.9 Magnesium Total Bilirubin 0.5 AST 31 ALT 33 Alkaline Phosphatase 107 Troponin I < 0.02 Total Protein 7.4 Albumin 4.1 Triglycerides Total Cholesterol LDL Cholesterol Direct HDL Cholesterol Lipase 138 TSH 3.37 PFSH Social History Smoking/Tobacco Use Status: Never Social History Smoking/Tobacco Use Status: Never
[2018-03-06 12:52] VITALS: PULSE 81
== END 2018-03-06 13:22 | disposition home or self-care (01) ==
LOC: ER 22:16 → MS 03-06 07:56
PROVIDERS: Admitting Provider Family Medicine; Emergency Provider Student in an Organized Health Care Education/Training Program; PCP Internal Medicine; Visit Provider Internal Medicine
DX: R07.89 Other chest pain (principal); E83.42 Hypomagnesemia; I10 Essential (primary) hypertension; R10.13 Epigastric pain; E78.5 Hyperlipidemia, unspecified; Z82.49 Family history of ischemic heart disease and other diseases of the circulatory system
CPT/HCPCS: 36415; 71275; 80053; 80061; 83690; 83721; 85027; 93005; 96360; 96361; 99220; 99239; 99285; 83735; 84443; 84484; 85025; 85610; 85730; 93010; 99217; G0378; J3480; J3490

== ENCOUNTER 2018-03-08 11:02 | Outpatient (REF) | payer MEDICARE, BC, SELFPAY ==
[2018-03-09 11:57] LABS: Helicobacter pylori Ag, Feces Positive (NEGAT)
== END 2018-03-08 11:22 ==
LOC: LBN 11:02
PROVIDERS: PCP Internal Medicine; Visit Provider Nurse Practitioner Primary Care
DX: R10.13 Epigastric pain (principal)
CPT/HCPCS: 87338

== ENCOUNTER 2018-03-09 00:09 | Outpatient (CLI) | payer MEDICARE, BC, SELFPAY ==
--- NOTE | 2018-03-09 13:00 | ETT_ITS ---
*[facility]* *[facility]* [address] [place] [address] Stress Electrocardiography Jacobo protocol Date of study: 03/09/2018 *PATIENT PRESENTATION* Height: 163.8cm (64.5in) Blood Pressure: Weight: 68.2kg (150lb) BSA: 1.77m^2 Ordering physician: Nery Rowley Impressions: Normal study after maximal exercise. Summary: 1. Stress: The target heart rate was achieved. Indication: R07.89. History: REASON FOR VISIT: ON Tuesday03/05/18 RAE WAS SEEN IN THE ED WITH SEVERE CHEST PAINS RADIATING INTO HER SHOULDER BLADES AND DOWN HER LEFT ARM, SHE REPORTS SHE HAD THIS PAIN ON AND OFF THROUGHOUT THAT DAY PRIOR TO COMING INTO THE HOSPITAL. SHE RULED OUT FOR ANY ACUTE CARDIAC INJURY WITH NEGATIVE EKGs AND NEGATIVE SERIAL TROPONINS. PT HAS A SIGNIFICANT FAMILY HISTORY FOR CARDIAC DISEASE IN HER MOTHER AND MATERNAL GRANDMOTHER. Risk factors: HISTORY OF [place]'S IN BOTH HER MOTHER AND GRANDMOTHER. PT HAS ALPHA-1 ANTITRYPSIN DEFICIENCY, SHE IS ASYMPTOMATIC. Family history of coronary artery disease. Hypertension. Dyslipidemia. Cholesterol: 151mg/dl. HDL: 37mg/dl. LDL: 64mg/dl. Triglycerides: 284mg/dl. ALLERGIES: PENICILLINS. MEDICATIONS: ATORVASTATIN 40 MG DAILY. TRAZADONE 25 MG Q HS. ASPIRIN 81 MG DAILY. OXYBUTYNIN CHLORIDE 5 MG DAILY PRN. ALBUTEROL SULFATE 1-2 PUFFS PRN. ESOMEPRAZOLE MAGNESIUM 40 MG DAILY. LISINOPRIL 10 MG DAILY. METOPROLOL 50 MG BID. NITROGLYCERIN 0.4 MG SL PRN. MVI 1 TAB DAILY. Protocol: Jacobo protocol. Stress protocol: + +---+ + !Stage !HR !BP (mmHg) ! + +---+ + !Baseline supine !80 !146/72 (97) ! + +---+ + !Baseline standing !85 !132/78 (96) ! + +---+ + !Stage I; 1.7mph, 10degrees; 3 min !111!166/80 (109) ! + +---+ + !Stage II; 2.5mph, 12degrees; 3 min !126!200/106 (137)! + +---+ + !Stage III; 3.4mph, 14degrees; 3 min!145! ! + +---+ + !Peak stress !152! ! + +---+ + !Immediate post stress !---!188/70 (109) ! + +---+ + !Recovery; 3 min !102!156/82 (107) ! + +---+ + !Recovery; 6 min !92 !132/74 (93) ! + +---+ + * Stress results: Maximal heart rate during stress was 152bpm (100% of maximal predicted heart rate). The maximal predicted heart rate was 152bpm. The target heart rate was achieved. The rate-pressure product for the peak heart rate and blood pressure was 93504ge Hg/min. Stress ECG: TREADMILL PORTION OF STRESS TEST ENDED IN 9 MINUTES & 15 SECONDS BECAUSE OF FATIGUE NORMAL HEART RATE AND NORMAL BLOOD PRESSURE RESPONSE TO EXERCISE. MAX HR = 152 % OF TARGET = 100 NO ECTOPY APPROXIMATE METS ACHIEVED = 10.55 NO ANGINA NO SIGNIFICANT ST SEGMENT CHANGES ABOVE AVERAGE FUNCTIONAL CAPACITY FOR EXERCISE. Study data: Hayden Coello MD supervised and was readily available during the procedure. This study was interpreted by [facility]. Study status: Routine. Consent: The risks, benefits, and alternatives to the procedure were explained to the patient and informed consent was obtained. Procedure: Initial setup. A baseline ECG was recorded. Surface ECG leads and manual cuff blood pressure measurements were monitored. Heart sounds: Normal. Lung sounds: Normal. Treadmill exercise testing was performed using the Jacobo protocol. Study completion: The patient tolerated the procedure well and was discharged from the lab. Discharge: The patient left the laboratory in stable condition. Birthdate: Patient birthdate: 1950. Sex: Gender: female. Study date: Study date: 03/09/2018. Study time: 01:00 PM. Signature Documentation: The Stress ECG portion of this study was interpreted by Hayden Coello MD. Electronically signed by Hayden Coello 03/09/2018 15:00
== END 2018-03-09 00:29 ==
PROVIDERS: PCP Internal Medicine; Visit Provider Nurse Practitioner Primary Care
DX: R07.89 Other chest pain (principal); I10 Essential (primary) hypertension; E78.5 Hyperlipidemia, unspecified; Z82.49 Family history of ischemic heart disease and other diseases of the circulatory system
CPT/HCPCS: 93017

== ENCOUNTER → 2023-04-22 00:44 | Outpatient (CLI) | payer MEDICARE, BC, SELFPAY ==
--- NOTE | 2023-04-22 10:13 | DI.RAD_ITS ---
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 TECHNIQUE: 2D digital imaging was performed. Three views. COMPARISON: No exams were available for comparison FINDINGS: BONES: No acute fracture is present. No bony destructive lesion is seen. JOINTS: No dislocation present. Severe degenerative changes of the interphalangeal joints of the fi ngers and thumb. Moderate degenerative changes 1st carpal metacarpal joint. SOFT TISSUE: Normal. No foreign body. IMPRESSION: Degenerative changes. No evidence of foreign body. DATA REPOSITORY: RADIATION DOSE DELIVERED:
== END ==
PROVIDERS: PCP Internal Medicine; Visit Provider Student in an Organized Health Care Education/Training Program
DX: S60.551A Superficial foreign body of right hand, initial encounter (principal); E88.01 Alpha-1-antitrypsin deficiency; X58.XXXA Exposure to other specified factors, initial encounter
CPT/HCPCS: 73120

== ENCOUNTER → 2023-09-08 14:44 | Outpatient (CLI) | payer MEDICARE, BC, SELFPAY ==
--- NOTE | 2023-09-08 | DI.RAD_ITS ---
Exam(s) XR RIBS BI INCLUDE CHEST EXAM: XR RIBS BI INCLUDE CHEST CLINICAL HISTORY: Traumatic fall, W19.XXXA TECHNIQUE: 2D digital imaging was performed. COMPARISON: No exams were available for comparison FINDINGS: RIBS 9 views: There are 2 fracture lines in the lateral aspect of the left 11th rib. No other rib fractures identi fied. However, there is a subtle suggestion of a fracture of the left transverse process of L1. CXR- 2 VIEWS: No lung contusion or pneumothorax. There is no pleural effusion evident. Heart size is normal and there is no significant mediastinal widening. IMPRESSION: 1. There 2 fractures in the left 11th rib. No other obvious rib fractures evident. 2. No obvious lung contusions nor pleural effusions and no pneumothorax. DATA REPOSITORY: RADIATION DOSE DELIVERED:
== END ==
PROVIDERS: PCP Internal Medicine; Visit Provider Internal Medicine
DX: S22.32XA Fracture of one rib, left side, initial encounter for closed fracture (principal); X58.XXXA Exposure to other specified factors, initial encounter; W19.XXXA Unspecified fall, initial encounter
CPT/HCPCS: 71046; 71110

== ENCOUNTER 2024-01-04 02:16 | Outpatient (CLI) | payer MEDICARE, BC, SELFPAY ==
[2024-01-04 19:28] LABS: AFP Tumor Marker 4.6 ng/mL (<8.1)
== END 2024-01-04 02:17 | disposition home or self-care (01) ==
PROVIDERS: PCP Internal Medicine; Referring Provider Student in an Organized Health Care Education/Training Program; Visit Provider Student in an Organized Health Care Education/Training Program
DX: E88.01 Alpha-1-antitrypsin deficiency (principal); K74.60 Unspecified cirrhosis of liver
CPT/HCPCS: 36415; 82105

== ENCOUNTER 2024-06-08 00:43 | Outpatient (CLI) | payer MEDICARE, BC, SELFPAY ==
[2024-06-08 11:24] LABS: Abs Immature Grans 0.02 10^3/uL (0.0-0.06); Absolute Basophil Count 0.03 10^3/uL (0.0-0.2); Absolute Eosinophil Count 0.14 10^3/uL (0.0-0.7); Absolute Lymphocyte Count 1.16 10^3/uL (1.2-3.4); Absolute Monocyte Count 0.31 10^3/uL (0.1-0.8); Absolute Neutrophil Count 3.38 10^3/uL (1.2-6.7); Basophils % 0.6 %; Eosinophils % 2.8 %; HCT 37.7 % (36.0-46.0); HGB 13.3 g/dL (11.2-15.7); Immature Grans % 0.4 %; MCH 33.6 pg (27.0-33.0); MCHC 35.3 % (32.0-36.0); MCV 95 fL (80-95); MPV 10.2 fL (8.0-11.0); Monocytes % 6.2 %; RBC 3.96 10^6/uL (3.93-5.22); RDW 14.6 % (11.7-14.6); RDW-SD 50.9 fL; WBC 5.04 10^3/uL (4.4-10.8)
[2024-06-08 11:34] LABS: INR 1.5 (0.9-1.1); Prothrombin Time 14.6 sec (9.1-11.1)
[2024-06-08 11:55] LABS: Platelet Count 58 10^3/uL (130-400)
[2024-06-08 12:14] LABS: ALT 36 U/L (14-59); AST 57 U/L (15-37); Albumin 2.9 g/dL (3.4-5.0); Alkaline Phosphatase 148 U/L (46-116); Anion Gap 4.2 mmol/L (3-11); BUN 10 mg/dL (7-18); Bilirubin, Total 2.4 mg/dL (0.2-1.0); CO2 30.8 mmol/L (21.0-32.0); CREATININE 0.7 mg/dL (0.55-1.02); Calcium 8.6 mg/dL (8.5-10.1); Chloride 111 mmol/L (98-107); Glucose 139 mg/dL (74-106); Potassium 3.6 mmol/L (3.5-5.1); Sodium 146 mmol/L (136-145)
== END 2024-06-08 00:44 | disposition home or self-care (01) ==
PROVIDERS: PCP Internal Medicine; Visit Provider Student in an Organized Health Care Education/Training Program
DX: K74.60 Unspecified cirrhosis of liver (principal)
CPT/HCPCS: 36415; 80053; 85025; 85610